=== PATIENT | male | born 1965 | race Caucasian/White ===

== ENCOUNTER 2017-09-05 05:37 | Inpatient (IN) | payer BC ==
[2017-09-05] MEDS ORDERED: THROMBIN 5000 UNIT VIAL (06:51)
[2017-09-05] MEDS ORDERED: POLYMYXIN/BACITRACIN 1L IRRIG (06:53)
[2017-09-05] MEDS ORDERED: TRANEXAMIC ACID 1,000 MG in DEXTROSE 5% 100 ML IV (07:00)
[2017-09-05] MEDS: TRANEXAMIC ACID 1,000 MG in DEXTROSE 5% 100 ML IV ×2 (07:40→09:48)
[2017-09-05] MEDS ORDERED: morphine SULFATE/PF (10 MG/10 ML) INJ (07:41)
[2017-09-05] MEDS ORDERED: MIDAZOLAM 1 MG/ML 2 ML INJ (07:41)
[2017-09-05] MEDS: VANCOMYCIN 1 GM INJ (08:53)
[2017-09-05] MEDS: BACITRACIN 50000 UNITS INJ (08:53)
[2017-09-05] MEDS: POLYMYXIN B 500000 UNIT INJ (08:53)
[2017-09-05] MEDS: HIP PAIN COCKTAIL (CEFUROXIME) INJ (08:54)
[2017-09-05] MEDS ORDERED: ONDANSETRON 4 MG INJ (09:58)
[2017-09-05] MEDS ORDERED: METOCLOPRAMIDE 10 MG INJ (09:58)
[2017-09-05] MEDS ORDERED: ROCURONIUM 50 MG INJ (09:59)
[2017-09-05] MEDS ORDERED: PROPOFOL 20 ML (09:59)
[2017-09-05] MEDS ORDERED: LIDOCAINE 2% (SDV) 5 ML INJ (09:59)
[2017-09-05] MEDS ORDERED: CEFAZOLIN 1 GM INJ (09:59)
[2017-09-05] MEDS ORDERED: ETOMIDATE 20 MG INJ (09:59)
[2017-09-05] MEDS ORDERED: SENNA/DOCUSATE NA (8.6MG/50MG) TAB PO (10:30)
[2017-09-05] MEDS ORDERED: oxyCODONE 5 MG TAB PO ×2 (10:30)
[2017-09-05] MEDS ORDERED: BETHANECHOL 25 MG TAB PO (10:30)
[2017-09-05] MEDS ORDERED: BISACODYL 10 MG SUPP PR (10:30)
[2017-09-05] MEDS ORDERED: ZOLPIDEM 5 MG TAB PO (10:30)
[2017-09-05] MEDS ORDERED: NALOXONE (0.4 MG/ML) INJ IV ×2 (10:30→11:00)
[2017-09-05] MEDS ORDERED: NA PHOSPHATE/BIPHOS 133 ML ENEMA PR (10:30)
[2017-09-05] MEDS ORDERED: NACL 0.9% 3 ML SYG IV (10:30)
[2017-09-05] MEDS ORDERED: MAGNESIUM HYDROXIDE 30ML CUP PO (10:30)
[2017-09-05] MEDS ORDERED: DIPHENHYDRAMINE 50 MG INJ IV (11:00)
[2017-09-05] MEDS ORDERED: HYDROmorphONE (0.2 MG/ML) 10ML SYG IV ×2 (11:00)
[2017-09-05] MEDS ORDERED: ONDANSETRON 4 MG INJ IV (11:00)
[2017-09-05] MEDS ORDERED: METOCLOPRAMIDE 10 MG INJ IV (11:00)
[2017-09-05] MEDS ORDERED: LABETALOL HCL 20MG INJ IV (11:00)
[2017-09-05] MEDS ORDERED: FENTAnyl 50 MCG/ML VIAL IV (11:00)
[2017-09-05] MEDS ORDERED: hydrALAzine 20 MG INJ IV (11:00)
[2017-09-05] MEDS ORDERED: MEPERIDINE 25 MG INJ IV (11:00)
[2017-09-05] MEDS: ASPIRIN (EC) 325 MG TAB PO ×2 (11:04→20:26)
[2017-09-05] MEDS: DOCUSATE SODIUM 100 MG CAP PO (11:05)
[2017-09-05] MEDS: ONDANSETRON 4 MG INJ IV ×3 (11:11→23:24)
[2017-09-05] MEDS: CEFAZOLIN 1 GM/50 ML (PMX) 50 ML IVPB ×2 (12:30→20:25)
[2017-09-05] MEDS: DIPHENHYDRAMINE 50 MG INJ IM (13:33)
[2017-09-05] MEDS: SOD CHLORIDE 0.9% 1,000 ML IV ×2 (13:58→23:27)
[2017-09-05] MEDS: metFORMIN 500 MG TAB PO (17:49)
[2017-09-05] MEDS: GABAPENTIN 300 MG CAP PO (20:25)
[2017-09-06] MEDS: CEFAZOLIN 1 GM/50 ML (PMX) 50 ML IVPB (04:20)
[2017-09-06 05:27] LABS: ADD MAN DIFF? NO
[2017-09-06 05:36] LABS: BASOPHIL # 0.1 10^3/ul (0.0-0.1); BASOPHILS % 0.8 % (0.0-2.0); EOSINOPHILS # 0.7 10^3/ul (0.0-0.5); EOSINOPHILS % 7.5 % (0.0-7.0); HEMATOCRIT 31.6 % (42.0-52.0); HEMOGLOBIN 10.1 g/dl (14.0-18.0); LYMPHOCYTES # 1.9 10^3/ul (0.8-2.9); LYMPHOCYTES % 20.9 % (15.0-51.0); MEAN CORPUSCULAR HEMOGLOBIN 27.4 pg (29.0-33.0); MEAN CORPUSCULAR VOLUME 85.6 fl (82.0-101.0); MEAN PLATELET VOLUME 10.7 fl (7.4-10.4); MONOCYTE # 0.9 10^3/ul (0.3-0.9); NEUTROPHIL # 5.4 10^3/ul (1.6-7.5); NEUTROPHILS % 59.8 % (39.0-77.0); PLATELET COUNT 197 10^3/UL (140-415); RED BLOOD COUNT 3.69 10^6/ul (4.70-6.10); RED CELL DISTRIBUTION WIDTH 14.2 % (11.5-14.5)
[2017-09-06 05:36] LABS: WHITE BLOOD COUNT 9.1 10^3/ul (4.8-10.8)
[2017-09-06] MEDS: ONDANSETRON 4 MG INJ IV (05:45)
[2017-09-06] MEDS: PANTOPRAZOLE (EC) 40 MG TAB PO (05:45)
[2017-09-06 05:56] LABS: ANION GAP 11 (8-16); BLOOD UREA NITROGEN 15 mg/dl (7-20); CALCIUM 8.3 mg/dl (8.4-10.2); CARBON DIOXIDE 29 mmol/L (21-31); CHLORIDE 102 mmol/L (97-110); GLUCOSE 105 mg/dl (70-220); POTASSIUM 3.8 mmol/L (3.5-5.1); SODIUM 138 mmol/L (135-144)
[2017-09-06] MEDS: AMLODIPINE 5 MG TAB PO (09:00)
[2017-09-06] MEDS: metFORMIN 500 MG TAB PO ×2 (09:29→17:41)
[2017-09-06] MEDS: CELECOXIB 200 MG CAP PO ×2 (09:29→20:44)
[2017-09-06] MEDS: GABAPENTIN 300 MG CAP PO ×3 (09:30→20:44)
[2017-09-06] MEDS: ASPIRIN (EC) 325 MG TAB PO ×2 (09:30→20:45)
[2017-09-06] MEDS: DULOXETINE 30 MG CAP DR PO (09:30)
[2017-09-06] MEDS: DOCUSATE SODIUM 100 MG CAP PO ×2 (09:30→20:44)
[2017-09-06] MEDS: FENOFIBRATE 145 MG TAB PO (09:30)
[2017-09-06] MEDS: FERROUS FUMARATE (SR) TAB PO ×2 (09:30→20:44)
[2017-09-06] MEDS: SOD CHLORIDE 0.9% 1,000 ML IV (11:20)
[2017-09-06] MEDS: oxyCODONE 5 MG TAB PO ×3 (12:45→20:45)
== END 2017-09-06 21:30 | disposition home health service (06) | DRG 470 ==
LOC: REC 05:37 → MS1 13:25
PROVIDERS: Orthopaedic Surgery
PROC: 0SRB04A Replacement of Left Hip Joint with Ceramic on Polyethylene Synthetic Substitute, Uncemented, Open Approach (ICD-10-PCS; principal; 2017-09-05 07:30)
DX: M16.12 Unilateral primary osteoarthritis, left hip (principal)
CPT/HCPCS: 73500; 73530; 80048; 82962; 85025; 86850; 86900; 86901; 87086; 97116; 97163; 97166; 97530; 97535

== ENCOUNTER → 2017-09-20 | Outpatient (CLI) | payer BC | END | disposition home or self-care (01) | LOC: HKI 13:28 | DX: Z47.1 Aftercare following joint replacement surgery (principal); Z96.642 Presence of left artificial hip joint ==

== ENCOUNTER → 2017-09-26 | Outpatient (CLI) | payer BC | END | disposition home or self-care (01) | LOC: HKI 10:49 | DX: Z47.1 Aftercare following joint replacement surgery (principal); M16.12 Unilateral primary osteoarthritis, left hip; Z96.642 Presence of left artificial hip joint ==

== ENCOUNTER → 2017-10-24 | Outpatient (CLI) | payer BC | END | disposition home or self-care (01) | LOC: HKI 10:57 | DX: Z09 Encounter for follow-up examination after completed treatment for conditions other than malignant neoplasm (principal); Z96.642 Presence of left artificial hip joint | CPT/HCPCS: 73502 ==